=== PATIENT | female | born 1975 | race Caucasian/White ===

== ENCOUNTER → 2023-12-02 14:31 | Outpatient (REF) | payer BC, SELFPAY | LOC: RAD 14:31 | PROVIDERS: ATTENDING PHYSICIAN Physician Assistant; FAMILY PHYSICIAN Family Medicine | DX: E04.2 Nontoxic multinodular goiter (principal) | CPT/HCPCS: 76536 ==

== ENCOUNTER 2024-10-20 06:10 | Day surgery (SDC) | payer BC, SELFPAY ==
[2024-10-16 08:51] LABS: Hematocrit 31.8 % (37.0-47.0); Hemoglobin 10.3 g/dL (12.0-16.0); Mean Corp Hgb Conc. 32.4 g/dL (33.0-37.0); Mean Corpuscular Hgb 29.2 pg (27.0-31.0); Mean Corpuscular Volume 90.1 fL (81.0-99.0); Mean Platelet Volume 10.1 fL (7.4-10.4); Platelet Count 355 10^3/uL (130-400); Red Blood Cell Count 3.53 10^6/uL (4.20-5.40); Red Cell Dist. Width 14.1 % (11.5-14.5); White Blood Cell Count 8.3 10^3/uL (4.8-10.8)
[2024-10-16 09:00] LABS: INR 1.05
[2024-10-16 09:01] LABS: APTT 28.3 Sec (23.4-35.0)
[2024-10-16 09:21] LABS: ALT (SGPT) 20 U/L (0-35); AST (SGOT) 18 U/L (14-36); Albumin 4.1 g/dl (3.5-5.0); Alkaline Phosphatase 52 U/L (38-126); Blood Urea Nitrogen 11 mg/dl (7-17); Calcium 9.5 mg/dl (8.4-10.2); Carbon Dioxide 24 mmol/L (22-30); Chloride 107 mmol/L (98-107); Glucose 109 mg/dl (70-99); Potassium 4.3 mmol/L (3.5-5.1); Sodium 141 mmol/L (135-145); Total Bilirubin 0.6 mg/dl (0.2-1.3); Total Protein 6.7 g/dl (6.3-8.2); eGFR > 60.00
[2024-10-16 14:03] VITALS: BMI 40.4
[2024-10-20] VITALS (10 sets, daily range): BP systolic 109–130; BP diastolic 68–87; BMI 40.4
[2024-10-20] MEDS: NEURONTIN 300 MG PO (07:04)
[2024-10-20] MEDS: TYLENOL 1000 MG PO (07:05)
[2024-10-20] MEDS: HEPARIN 5000 UNITS SC (07:05)
[2024-10-20 07:08] LABS: Glucose - Point of Care 97 mg/dl (70-99)
[2024-10-20] MEDS: NORMOSOL-R/PLASMALYTE-A 1000 IV (07:11)
--- NOTE | 2024-10-20 09:09 | OR.RPT ---
Operative Report
Operative Report
DATE OF OPERATION: October 20, 2024
PREOPERATIVE DIAGNOSIS: Thyroid Goiter Multinodular - E042
POSTOPERATIVE DIAGNOSIS: Right Substernal Multinodular goiter
SURGEON: Marco Antonio Easton M.D.
OPERATION: Right Total Thyroidectomy Substernal - 31482
ANESTHESIA: GET
ESTIMATED BLOOD LOSS: 3 cc
DRAINS: None
SPECIMEN: right total thyroid lobe and isthmus
FINDINGS: Right multinodular substernal goiter
COMPLICATIONS:� None
PROCEDURE:
The patient was taken to the operating room and placed in the usual supine position. After adequate general endotracheal anesthesia was established, the patient�s neck was extended, prepped, and draped in the typical sterile fashion. A 5 cm
transcervical incision was made two fingerbreadths above the sternal notch. The skin incision was made with the #15 blade, which was taken through the skin into the subcutaneous tissue. The underlying platysma muscle was divided, and subplatysmal
flaps were created superiorly to the thyroid cartilage and inferiorly to the sternal notch. Strap muscles were identified and at the midline.
Attention was turned to the patient�s right thyroid lobe. The right thyroid lobe was mobilized medially. During this process, the right middle thyroid vein and inferior thyroid artery were dissected and ligated with Ligasure. There was a substernal
extension, which was delivered out of the mediastinum through the cervical incision. Next, the right superior pole was taken down by dissecting and transecting the superior pole vessels with a Ligasure. The right thyroid lobe was mobilized medially.
During this process, the right recurrent laryngeal nerve was identified and preserved throughout its entire course. The right inferior parathyroid gland was identified and preserved. The right thyroid lobe with isthmus was resected off the trachea
and sent to the pathology department.
After obtaining adequate hemostasis, the strap muscle was approximated with #3-0 Vicryl in a running fashion, and platysma muscles were reapproximated with #3-0 Vicryl in an interrupted fashion, and the skin was approximated with #4-0 Monocryl in a
running subcuticular fashion. Steri-strips and sterile dressings were placed. The patient tolerated the procedure well. The final instrument, needle, and sponge counts were correct.
[2024-10-20 09:23] LABS: Glucose - Point of Care 112 mg/dl (70-99)
[2024-10-20] MEDS: DILAUDID 0.5 MG IV (09:34)
== END 2024-10-20 11:40 | disposition home or self-care (01) ==
LOC: SDS 06:10
PROVIDERS: ATTENDING PHYSICIAN Surgery; FAMILY PHYSICIAN Family Medicine
DX: E04.2 Nontoxic multinodular goiter (principal); C73 Malignant neoplasm of thyroid gland
CPT/HCPCS: 60271; 88307; 36415; 80053; 82962; 85027; 85610; 85730; 93005; C1776